=== PATIENT | female | born 1960 | race Caucasian/White ===

== ENCOUNTER 2020-11-22 09:48 | Emergency (ER) | payer MEDICARE ==
[2020-11-22] MEDS ORDERED: Ketorolac 30 MG/ML SDV IVPUSH ONE (09:50)
--- NOTE | 2020-11-22 10:01 | EDM.PDOC ---
ED HPI GENERAL MEDICAL PROBLEM - General Chief Complaint: Abdominal Pain Stated Complaint: abdominal pain Time Seen by Provider: 11/22/20 09:50 Source of Information: Reports: Patient, EMS History Limitations: Reports: No Limitations - History of Present Illness INITIAL COMMENTS - FREE TEXT/NARRATIVE: She is brought to the emergency department by ambulance complaining of severe epigastric abdominal pain. She reports a constant 9/10 pain for the past 2 days. Pain has been unchanged since it started. No nausea or vomiting. No diarrhea or constipation. She did have a normal bowel movement yesterday. She states that she gets pains like this intermittently but it is not this severe or long-lasting. She does take omeprazole on a regular basis, but has been out of it for a few days. No dark tarry or black stools. No blood in the stools. No fever. She did feel chilled last night. No recent change in her diet. She does take medication for depression. No history of heart disease. No hypertension. She is status post gastric bypass about 16 years ago. No chest pain or tightness. No difficulty breathing. No dizziness or lightheadedness. abdomen/epigastric Pain Score (Numeric/FACES): 9 - Related Data Allergies Allergy/AdvReac Type Severity Reaction Status Date / Time amoxicillin Allergy Rash Verified 11/22/20 09:49 Home Meds: Home Meds Omeprazole Magnesium [Prilosec Otc] 40 mg PO DAILY 11/22/20 [History] PARoxetine HCL [Paroxetine HCl] 40 mg PO DAILY 11/22/20 [History] ED ROS GENERAL - Review of Systems Review Of Systems: See Below Constitutional: Reports: Chills. Denies: Fever, Weakness, Fatigue HEENT: Denies: Sinus Problem, Throat Pain Respiratory: Reports: Shortness of Breath, Wheezing, Cough Cardiovascular: Reports: Chest Pain, Palpitations GI/Abdominal: Reports: Abdominal Pain (See HPI). Denies: Black Stool, Bloody Stool, Constipation, Diarrhea, Distension, Nausea : Denies: Dysuria, Frequency, Urgency Neurological: Denies: Confusion, Dizziness Psychiatric: Reports: Depression ED EXAM, GENERAL - Physical Exam Exam: See Below Exam Limited By: No Limitations General Appearance: Alert, WD/WN, Mild Distress Ears: Normal External Exam, Normal Canal, Normal TMs Nose: Normal Inspection, Normal Mucosa Throat/Mouth: Normal Inspection, Normal Lips, Normal Oropharynx Head: Atraumatic, Normocephalic Respiratory/Chest: No Respiratory Distress, Lungs Clear, Normal Breath Sounds Cardiovascular: Regular Rate, Rhythm, No Murmur GI/Abdominal: Normal Bowel Sounds, Soft, No Distention, No Mass, Tender (Diffuse sharp tenderness. No localized area of increased tenderness.) Neurological: Alert, Oriented, Normal Cognition Psychiatric: Normal Affect, Normal Mood Skin Exam: Warm, Dry Course - Vital Signs Text/Narrative:: Bloodwork indicated slightly elevated WBC and a hemoglobin of 7.5. Labs were otherwise fairly unremarkable. She was initially given ketorolac for pain with minimal improvement. She was then given 5 mg of morphine IV. CT scan indicated probable perforated ulcer in the gastric pouch. I spoke with gastroenterology at [facility] who referred me to surgery of. Unfortunately the surgeon on-call did not feel he could operate on the gastric pouch. I spoke with Dr. Cristobal, surgery at [facility] in [place] and patient will be transferred there. She is given IV cefazolin and Protonix and a 500 cc bolus of fluid as well. Last Recorded V/S: Last Vital Signs Temp 36.5 C 11/22/20 10:04 Pulse 68 11/22/20 10:04 Resp 22 H 11/22/20 10:04 BP 119/88 11/22/20 10:04 Pulse Ox 98 11/22/20 10:04 - Orders/Labs/Meds Orders: Active Orders 24 hr Category Date Time Status CTA Abd Pelv w Cont [CT] Stat Exams 11/22/20 10:36 Taken Sodium Chloride 0.9% [Saline Flush] Med 11/22/20 09:51 Active 10 ml FLUSH ASDIRECTED PRN Saline Lock Insert [OM.PC] Routine Oth 11/22/20 09:51 Ordered Medication Orders Sodium Chloride (Saline Flush) 10 ml FLUSH ASDIRECTED PRN PRN Reason: Keep Vein Open Last Admin: 11/22/20 10:42 Dose: 10 ml Documented by: Admin: 11/22/20 10:04 Dose: 10 ml Documented by: DANNIELLE Labs: Laboratory Tests 11/22/20 11/22/20 11/22/20 Range/Units 09:55 09:55 09:55 WBC 20.0 H (4.0-10.2) K/uL RBC 3.90 (3.77-5.09) M/uL Hgb 7.5 L (11.7-15.5) g/dL Hct 25.4 L (34.0-46.0) % MCV 65.1 L (84.0-98.0) fL MCH 19.2 L (28.2-33.3) pg MCHC 29.5 L (31.7-36.0) g/dL RDW 20.4 H (11.2-14.1) % Plt Count 353 H (150-350) K/uL Neut % (Auto) 91.3 H (45.0-80.0) % Lymph % (Auto) 3.4 L (10.0-50.0) % Edmunds % (Auto) 5.3 (2.0-14.0) % Eos % (Auto) 0.0 (0.0-5.0) % Baso % (Auto) 0.0 (0.0-2.0) % Neut # (Auto) 18.28 H (1.40-7.00) K/uL Lymph # (Auto) 0.69 (0.50-3.50) K/uL Edmunds # (Auto) 1.06 H (0.00-1.00) K/uL Eos # (Auto) 0.00 (0.00-0.50) K/uL Baso # (Auto) 0.01 (0.00-0.20) K/uL Sodium 136 (136-145) mmol/L Potassium 3.7 (3.5-5.1) mmol/L Chloride 101 (98-107) mmol/L Carbon Dioxide 24.2 (21.0-32.0) mmol/L BUN 23 H (7-18) mg/dL Creatinine 0.84 (0.51-1.17) mg/dL Est Cr Clr Drug Dosing 52.44 mL/min Estimated GFR (MDRD) > 60 mL/min Glucose 108 H (74-106) mg/dL Calcium 9.3 (8.5-10.1) mg/dL Total Bilirubin 0.5 (0.2-1.0) mg/dL AST 18 (15-37) U/L ALT 18 (12-78) U/L Alkaline Phosphatase 52 (46-116) IU/L Troponin I 0.000 (0.000-0.056) ng/mL Total Protein 7.4 (6.4-8.2) g/dL Albumin 3.3 L (3.4-5.0) g/dL Amylase 50 (25-115) U/L Lipase 73 (73-393) U/L Meds: Medications Generic Name Dose Route Start Last Admin Trade Name Freq PRN Reason Stop Dose Admin Sodium Chloride 10 ml 11/22/20 09:51 11/22/20 10:42 Saline Flush FLUSH 10 ml ASDIRECTED PRN Administration Keep Vein Open Discontinued Medications Generic Name Dose Route Start Last Admin Trade Name Freq PRN Reason Stop Dose Admin Al Hydroxide/Mg Hydroxide 30 ml 11/22/20 11:21 11/22/20 12:05 Gi Cocktail PO 11/22/20 11:22 Not Given ONETIME ONE Iopamidol Confirm 11/22/20 10:54 11/22/20 11:30 Isovue-370 (76%) Administered 11/22/20 10:55 100 ml Dose Administration 100 ml .ROUTE .STK-MED ONE Ketorolac Tromethamine 30 mg 11/22/20 09:50 11/22/20 09:53 Toradol IVPUSH 11/22/20 09:51 30 mg ONETIME ONE Administration Morphine Sulfate 5 mg 11/22/20 10:24 11/22/20 10:29 Morphine IVPUSH 11/22/20 10:25 5 mg ONETIME ONE Administration Nicotine 21 mg 11/22/20 12:05 Habitrol TRDERM 11/22/20 12:06 ONETIME ONE - Radiology Interpretation Free Text/Narrative:: CT scan of the abdomen done with contrast shows free intraperitoneal air a small amount of free fluid. Findings are suspicious for a perforated ulcer most likely in the gastric pouch. Departure - Departure Time of Disposition: 12:40 Disposition: DC/Tfer to Acute Hospital 02 Condition: Fair Clinical Impression: Perforated ulcer, Abdominal pain, Peptic ulcer - Discharge Information *PRESCRIPTION DRUG MONITORING PROGRAM REVIEWED*: Not Applicable *COPY OF PRESCRIPTION DRUG MONITORING REPORT IN PATIENT [place]: Not Applicable Referrals: Mariely Jaimes PA-C [Primary Care Provider] - Forms: ED Department Discharge Additional Instructions: Transfer to [facility] by ambulance. Sepsis Event Note (ED) - Focused Exam Vital Signs: Vital Signs Temp Pulse Resp BP Pulse Ox 02/20/21 10:04 36.5 C 68 22 H 119/88 98 - My Orders Last 24 Hours: My Active Orders 11/22/20 09:51 Sodium Chloride 0.9% [Saline Flush] 10 ml FLUSH ASDIRECTED PRN Saline Lock Insert [OM.PC] Routine 11/22/20 10:36 CTA Abd Pelv w Cont [CT] Stat - Assessment/Plan Last 24 Hours: My Active Orders 11/22/20 09:51 Sodium Chloride 0.9% [Saline Flush] 10 ml FLUSH ASDIRECTED PRN Saline Lock Insert [OM.PC] Routine 11/22/20 10:36 CTA Abd Pelv w Cont [CT] Stat
[2020-11-22] MEDS: Sodium Chloride 0.9% 10 ML Syringe FLUSH PRN ×4 (10:04→12:29)
[2020-11-22 10:21] LABS: CHLORIDE,CL 101 mmol/L (98-107); SODIUM,NA 136 mmol/L (136-145)
[2020-11-22] MEDS ORDERED: Morphine 4 MG/ML Syringe IVPUSH ONE ×2 (10:24→12:47)
[2020-11-22] MEDS ORDERED: Iopamidol 755 Mg/ML 100 ML Bottle ONE (10:54)
[2020-11-22] MEDS ORDERED: GI Cocktail Oral Solution 30 ML PO ONE (11:21)
[2020-11-22] MEDS ORDERED: Nicotine 21 MG/24 Hr Patch TRDERM ONE (12:05)
[2020-11-22] MEDS ORDERED: Sodium Chloride 0.9% 500 ML IV SCH (12:15)
[2020-11-22] MEDS ORDERED: Pantoprazole 40 MG in Sodium Chloride 0.9% 100 ML IV ONE (12:18)
[2020-11-22] MEDS ORDERED: Pantoprazole 40 MG Vial IVPUSH ONE (12:28)
[2020-11-22] MEDS ORDERED: ceFAZolin 1 GM in Sodium Chloride 0.9% 100 ML IV SCH (12:30)
[2020-11-22] MEDS ORDERED: Sodium Chloride 0.9% 1,000 ML IV SCH (13:00)
== END 2020-11-22 13:13 ==
LOC: LL.ED 09:48
DX: K27.5 Chronic or unspecified peptic ulcer, site unspecified, with perforation (principal); Z88.0 Allergy status to penicillin
CPT/HCPCS: 36415; 74174; 80053; 82150; 83690; 84484; 85025; 96374; 96375; 96376; 99285; A9270; C9113; J0690; J1885; J2270; J7030; J7040; Q9967; 99284

== ENCOUNTER 2024-11-09 01:02 | Emergency (ER) | payer MEDICARE ==
[2024-11-09] MEDS: Sodium Chloride 0.9% 10 ML Syringe FLUSH PRN (01:19)
[2024-11-09] MEDS: Pantoprazole 40 MG Vial IVPUSH ONE (01:19)
[2024-11-09] MEDS ORDERED: Iopamidol 612 MG/ML 100 ML Bottle ONE (01:21)
[2024-11-09 01:27] LABS: BASOPHILS ABSOLUTE AUTO 0.03 K/uL (0.00-0.20); BASOPHILS PERCENT AUTO 0.4 % (0.0-2.0); EOSINOPHILS ABSOLUTE AUTO 0.12 K/uL (0.00-0.50); EOSINOPHILS PERCENT AUTO 1.7 % (0.0-5.0); HEMATOCRIT 40.7 % (34.0-46.0); HEMOGLOBIN 13.8 g/dL (11.7-15.5); IMMATURE GRAN ABSOLUTE AUTO 0.01 10^3/uL (0.00-0.04); IMMATURE GRAN PERCENT AUTO 0.1 % (0.0-0.4); LYMPHOCYTES ABSOLUTE AUTO 1.42 K/uL (0.50-3.50); LYMPHOCYTES PERCENT AUTO 20.1 % (10.0-50.0); MEAN CORPUSCULAR HEMOGLOBIN 30.9 pg (28.2-33.3); MEAN CORPUSCULAR HGB CONC 33.9 g/dL (31.7-36.0); MEAN CORPUSCULAR VOLUME 91.1 fL (84.0-98.0); MONOCYTES ABSOLUTE AUTO 0.59 K/uL (0.00-1.00); MONOCYTES PERCENT AUTO 8.3 % (2.0-14.0); NEUTROPHILS PERCENT AUTO 69.4 % (45.0-80.0); PLATELET COUNT,PLT 201 K/uL (150-350); RED BLOOD CELL COUNT 4.47 M/uL (3.77-5.09); RED CELL DISTRIBUTION WIDTH 15.6 % (11.2-14.1); WHITE BLOOD CELL COUNT,WBC 7.1 K/uL (4.0-10.2)
[2024-11-09] MEDS ORDERED: Naloxone 0.4 MG/ML SDV IVPUSH PRN (01:30)
[2024-11-09] MEDS: HYDROmorphone 0.5 MG/0.5 ML Syringe IVPUSH ONE (01:33)
[2024-11-09 01:54] LABS: ANION GAP 9.1 meq/L (7-15); CALCIUM 9.2 mg/dL (8.5-10.1); CARBON DIOXIDE,CO2 25.9 mmol/L (21.0-32.0); CREATININE 1.09 mg/dL (0.51-1.17); EST CRCL DRUG DOSING (CG) 30.66 mL/min
[2024-11-09] MEDS ORDERED: Aluminum Hydroxide/Magnesium Hydroxide/Simethicone Susp 30 ML Cup ONE (02:05)
[2024-11-09] MEDS: Aluminum Hydroxide/Magnesium Hydroxide/Simethicone Susp 30 ML Cup PO ONE (02:10)
[2024-11-09] MEDS: Lidocaine 2% Viscous Solution 15 ML UD PO ONE (02:10)
[2024-11-09] MEDS: Ketorolac 30 MG/ML SDV IVPUSH ONE (02:49)
[2024-11-09] MEDS: Morphine 4 MG/ML Syringe IVPUSH ONE ×2 (03:15→03:55)
[2024-11-09 03:47] VITALS: BP 192/103; PULSE 76
== END 2024-11-09 04:15 ==
LOC: LL.ED 01:02
DX: K46.9 Unspecified abdominal hernia without obstruction or gangrene (principal); F17.210 Nicotine dependence, cigarettes, uncomplicated; Z98.84 Bariatric surgery status; Z90.710 Acquired absence of both cervix and uterus; Z88.0 Allergy status to penicillin; Z79.51 Long term (current) use of inhaled steroids; Z79.899 Other long term (current) drug therapy
CPT/HCPCS: 36415; 71045; 74177; 80048; 83880; 84484; 85025; 93005; 96374; 96375; 96376; 99285-25; A9270-GY; J1885; J2270; J2470